=== PATIENT | male | born 1975 | race Caucasian/White ===

== ENCOUNTER 2016-09-07 19:40 | Emergency (ER) | payer OTHER ==
[~2016-09-07] VITALS: Ht 185.4 cm; Wt 90.0 kg
[~2016-09-07 19:40] MED LIST: FLUO20TA20 PO; GABA100C4 PO; SERO100T PO; SERO200T2 PO; TYLE3 PO; VENTAER INH
[2016-09-07 19:41] VITALS: BP 163/106; PULSE 88; RESP 20; TEMP 98.1; O2SAT 95
[2016-09-07 21:47] LABS: BASOPHIL % 0.2 % (0.0-2.0); EOSINOPHIL # 0.1 TH/MM3 (0-0.4); EOSINOPHIL % 1.2 % (0.0-4.0); HEMATOCRIT 42.5 % (39.0-51.0); HEMO FLAGS DIFF FINAL; LYMPH % 19.6 % (9.0-44.0); LYMPHOCYTE # 2.2 TH/MM3 (1.0-4.8); MEAN CELL VOLUME 90.8 FL (80.0-100.0); MEAN CORPUSCULAR HEMOGLOBIN 31.6 PG (27.0-34.0); MEAN CORPUSCULAR HGB CONC 34.8 % (32.0-36.0); MONO % 5.6 % (0.0-8.0); NEUT % 73.4 % (16.0-70.0); PLATELET COUNT 373 TH/MM3 (150-450); RED BLOOD COUNT 4.68 MIL/MM3 (4.50-5.90)
[2016-09-07 21:51] LABS: BLOOD, URINE NEG (NEG); COMMENT (UR) CULT NOT INDICATED; CULTURE IF INDICATED CULT NOT INDICATED; GLUCOSE,URINE NEG (NEG); KETONE, URINE NEG (NEG); NITRITE,URINE NEG (NEG); PH, URINE 5.5 (5.0-8.5); SQUAMOUS EPITHELIAL CELL URINE <1 /hpf (0-5); URINE COLOR YELLOW (YELLW/STRAW)
[2016-09-07 22:12] LABS: BICARBONATE 24.6 MEQ/L (21.0-32.0)
[2016-09-07 22:45] VITALS: O2SAT 97
[2016-09-07] MEDS ORDERED: FLUO10CA5 PO (22:48)
[2016-09-07] MEDS ORDERED: SERO200T PO (22:48)
[2016-09-07] MEDS ORDERED: LITH150C PO (22:48)
[2016-09-07] MEDS ORDERED: MIRTAZAPINE (22:48)
[2016-09-07] MEDS ORDERED: SERO100T PO (22:48)
[2016-09-07] MEDS ORDERED: AMLODIPINE (22:48)
[2016-09-07] MEDS ORDERED: CHOLMIS5 (22:48)
[2016-09-07] MEDS ORDERED: ULTR50TA5 PO (22:50)
--- NOTE | 2016-09-07 23:14 | PD ---
HPI Chief Complaint: Flank/Kidney Pain Time Seen by Provider: 23:02 Travel History International Travel<30 days: No Contact w/Intl Traveler<30days: No Traveled to known affect area: No History of Present Illness HPI 41-year-old male complains of left flank pain and dysuria. Patient states that the symptoms started yesterday. Patient states the pain is sharp pain localized to the left flank area. Patient denies any pain radiation. Patient denies any fever chills. Patient states that he has nausea but no vomiting or diarrhea. Patient complains of dysuria. Patient has history kidney stone in the past. Patient has been seen by urologist at the [facility] in [place]. Patient has history of PTSD, anxiety, depression, hypertension, dyslipidemia. PFSH Past Medical History Anxiety: Yes Depression: Yes High Cholesterol: Yes Hypertension: Yes Kidney Stones: Yes Medical other: Yes (PTSD ) Influenza Vaccination: Yes Past Surgical History Other Surgery: Yes (kidney surgery ) Social History Alcohol Use: No Tobacco Use: Yes (08/16 ppd ) Substance Use: No Allergies-Medications (Allergen,Severity, Reaction): Coded Allergies: No Known Allergies (Unverified , 09/07/16) Reported Meds & Prescriptions Reported Meds & Active Scripts Active Reported Ultram (Tramadol HCl) 50 Mg Tab 100 Mg PO BID PRN [Cholesterol] Fluoxetine (Fluoxetine HCl) 10 Mg Cap 300 Mg PO DAILY [Amlodipine ] [Mirtazapine ] [place] Carbonate 150 Mg Cap 100 Mg PO BID Seroquel (Quetiapine Fumarate) 200 Mg Tab 200 Mg PO HS Seroquel (Quetiapine Fumarate) 100 Mg Tab 100 Mg PO BID Review of Systems General / Constitutional: No: Fever Eyes: No: Visual changes HENT: No: Headaches Cardiovascular: No: Chest Pain or Discomfort Respiratory: No: Shortness of Breath Gastrointestinal: No: Abdominal Pain Genitourinary: Positive: Dysuria Musculoskeletal: No: Pain Skin: No Rash Neurologic: No: Weakness Psychiatric: No: Depression Endocrine: No: Polydipsia Hematologic/Lymphatic: No: Easy Bruising Physical Exam Narrative GENERAL: Well-nourished, well-developed patient. SKIN: Warm and dry. HEAD: Normocephalic. EYES: No scleral icterus. No injection or drainage. NECK: Supple, trachea midline. No JVD or lymphadenopathy. CARDIOVASCULAR: Regular rate and rhythm without murmurs, gallops, or rubs. RESPIRATORY: Breath sounds equal bilaterally. No accessory muscle use. GASTROINTESTINAL: Abdomen soft, non-tender, nondistended. MUSCULOSKELETAL: No cyanosis, or edema. BACK: Moderate tenderness on palpation left flank area. Neurologic exam normal. Data Data Last Documented VS Vital Signs Date Time Temp Pulse Resp B/P Pulse Ox O2 Delivery O2 Flow Rate FiO2 09/07/16 22:45 97 Room Air 09/07/16 19:41 98.1 88 20 163/106 Orders Basic Metabolic Panel (Bmp) (09/07/16 21:01) Complete Blood Count With Diff (09/07/16 21:01) Urinalysis - C+S If Indicated (09/07/16 21:01) Iv Access Insert/Monitor (09/07/16 21:01) Ecg Monitoring (09/07/16 21:01) Oximetry (09/07/16 21:01) Ketorolac Inj (Toradol Inj) (09/07/16 23:15) Ondansetron Inj (Zofran Inj) (09/07/16 23:15) Sodium Chlor 0.9% 1000 Ml Inj (Ns 1000 M (09/07/16 23:15) Ct Abd/Pel W/O Iv Contrast (09/07/16 23:09) Labs Laboratory Tests Test 09/07/16 21:00 White Blood Count 11.0 TH/MM3 Red Blood Count 4.68 MIL/MM3 Hemoglobin 14.8 GM/DL Hematocrit 42.5 % Mean Corpuscular Volume 90.8 FL Mean Corpuscular Hemoglobin 31.6 PG Mean Corpuscular Hemoglobin 34.8 % Concent Red Cell Distribution Width 13.0 % Platelet Count 373 TH/MM3 Mean Platelet Volume 6.7 FL Neutrophils (%) (Auto) 73.4 % Lymphocytes (%) (Auto) 19.6 % Monocytes (%) (Auto) 5.6 % Eosinophils (%) (Auto) 1.2 % Basophils (%) (Auto) 0.2 % Neutrophils # (Auto) 8.0 TH/MM3 Lymphocytes # (Auto) 2.2 TH/MM3 Monocytes # (Auto) 0.6 TH/MM3 Eosinophils # (Auto) 0.1 TH/MM3 Basophils # (Auto) 0.0 TH/MM3 CBC Comment DIFF FINAL Differential Comment Urine Color YELLOW Urine Turbidity CLEAR Urine pH 5.5 Urine Specific [place] 1.015 Urine Protein TRACE mg/dL Urine Glucose (UA) NEG mg/dL Urine Ketones NEG mg/dL Urine Occult Blood NEG Urine Nitrite NEG Urine Bilirubin NEG Urine Urobilinogen LESS THAN 2.0 MG/DL Urine Leukocyte Esterase NEG Urine RBC 1 /hpf Urine WBC 2 /hpf Urine Squamous Epithelial <1 /hpf Cells Microscopic Urinalysis Comment CULT NOT INDICATED Sodium Level 140 MEQ/L Potassium Level 4.0 MEQ/L Chloride Level 105 MEQ/L Carbon Dioxide Level 24.6 MEQ/L Anion Gap 10 MEQ/L Blood Urea Nitrogen 11 MG/DL Creatinine 1.51 MG/DL Estimat Glomerular Filtration 51 ML/MIN Rate Random Glucose 100 MG/DL Calcium Level 9.3 MG/DL [facility] Medical Decision Making Medical Screen Exam Complete: Yes Emergency Medical Condition: Yes Interpretation(s) 23:15 PM. CBC within normal limit. BMP within normal limit. Creatinine 1.51. UA is negative. 12:16 AM. Last Impressions Abdomen/Pelvis CT 09/07/16 [id number] Signed Impressions: Service Date/Time: Wednesday, September 07, 2016 23:36 - CONCLUSION: 1. Stable bilateral nonobstructing renal calculi. 2. No evidence of hydronephrosis. 3. Stable coiling of the right kidney. 4. No new or significant changes compared to the prior study. Kiko Reyes MD Differential Diagnosis Differential diagnosis including nephrolithiasis, pyelonephritis, musculoskeletal. Narrative Course 41-year-old male plans of left flank pain. History of kidney stone. Normal saline solution 1 L IV bolus. Toradol 30 mg IV. Zofran [address] scan abdomen pelvis shows nonobstructing kidney stones. I explained to patient that the back pain is not caused by passing kidney stone. Patient has other etiology for back pain. Diagnosis Primary Impression: Nephrolithiasis Patient Instructions: General Instructions Additional Instructions: Take medication as directed for pain. Follow-up with urologist. Return if persistent pain, intractable pain fever, vomiting. Med/Other Pt SpecificInfo: Prescription(s) given Scripts Cyclobenzaprine (Flexeril)10 Mg Tab10 Mg PO TID #60 TAB Ref 0 Prov:Gato Suero MD 09/08/16 Disposition: 01 DISCHARGE HOME Condition: Stable Gato Suero MD Sep 07, 2016 23:14
[2016-09-07] MEDS ORDERED: ONDANSETRON HCL 4 MG/2 ML VIAL IV PUSH ONE (23:15)
[2016-09-07] MEDS ORDERED: SODIUM CHLOR 0.9% 1000 ML INJ 1,000 ML IV ONE (23:15)
[2016-09-07] MEDS ORDERED: KETOROLAC TROMETHAMINE 30 MG/ML (IVP) VIAL IV PUSH ONE (23:15)
--- NOTE | 2016-09-07 23:57 | RADRPT ---
EXAM DATE/TIME: 09/07/2016 23:36 [facility] COMPARISON: CT ABDOMEN & PELVIS W/O CONTRAST, August 25, 2015, 20:43. INDICATIONS : Left flank pain. ORAL CONTRAST: No oral contrast ingested. RADIATION DOSE: 8.28 CTDIvol (mGy) MEDICAL HISTORY : Hypertension. Renal calculi. SURGICAL HISTORY : None. ENCOUNTER: Initial ACUITY: 1 day PAIN SCALE: 9/10 LOCATION: Left flank TECHNIQUE: Volumetric scanning of the abdomen and pelvis was performed. Using automated exposure control and ad justment of the mA and/or kV according to patient size, radiation dose was kept as low as reasonably achievable to obtain optimal diagnostic quality images. The lack of IV contrast limits the diagnosis for certain organ pathology. FINDINGS: LOWER LUNGS: The rounded density in the right lung base is smaller. This is most likely some rounded atelectasis. The left lung base is clear. LIVER: Homogeneous density without lesion. There is no dilation of the biliary tree. No calcified gallston es. SPLEEN: Normal size without lesion. PANCREAS: Within normal limits. KIDNEYS: No evidence of hydronephrosis. There continue to be multiple stable subcentimeter nonobstructing bila teral renal calculi. There is coiling of the right kidney which is stable. The ureters are nondilated . No ureteral stones are seen. Vascular calcifications are noted in the right renal pelvis. The overa ll appearance of the kidneys are stable. ADRENAL GLANDS: Within normal limits. VASCULAR: There is no aortic aneurysm. BOWEL/MESENTERY: The stomach, small bowel, and colon demonstrate no acute abnormality. There is no free intraperitone al air or fluid. The appendix is unremarkable. ABDOMINAL WALL: Within normal limits. RETROPERITONEUM: There is no lymphadenopathy. BLADDER: No wall thickening or mass. REPRODUCTIVE: Within normal limits. INGUINAL: There is no lymphadenopathy or hernia. MUSCULOSKELETAL: Within normal limits for patient age. CONCLUSION: 1. Stable bilateral nonobstructing renal calculi. 2. No evidence of hydronephrosis. 3. Stable coiling of the right kidney. 4. No new or significant changes compared to the prior study. Kiko Reyes MD on September 07, 2016 at 23:54 Board Certified Radiologist. This report was verified electronically.
[2016-09-08] MEDS ORDERED: CYCL1TAB29 PO (00:21)
[2016-09-08] MEDS ORDERED: ORPHENADRINE INJ 60 MG/2 ML AMP IM ONE (00:30)
== END 2016-09-08 00:38 | disposition home or self-care (01) ==
LOC: NEPA 19:40
DX: N20.0 Calculus of kidney (principal); F43.10 Post-traumatic stress disorder, unspecified; I10 Essential (primary) hypertension; Z87.442 Personal history of urinary calculi; F17.210 Nicotine dependence, cigarettes, uncomplicated
CPT/HCPCS: 74176; 80048; 81001; 85025; 96372; 96374; 96375; 99284; J1885; J2360; J2405; J7030